=== PATIENT | female | born 1985 | race Caucasian/White ===

== ENCOUNTER 2024-08-01 10:56 | Emergency (ER) | payer SELFPAY ==
[2024-08-01 11:16] VITALS: BP 109/66; PULSE 72; RESP 18; TEMP 36.3; O2SAT 100
--- NOTE | 2024-08-01 11:22 | ED_ITS ---
HPI - Female Genitourinary General Chief complaint: Urogenital-Female Stated complaint: UTI symptoms Time Seen by Provider: 08/01/24 11:22 Source: patient and RN notes reviewed Mode of arrival: ambulatory Limitations: no limitations History of Present Illness HPI Narrative: 38-year-old female presents [facility] complaining of urinary symptoms for 14 days. Patient says she was recently treated for UTI with cephalexin and says she finished treatment her symptoms returned. 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 Patient reports having dysuria, increased frequency, low back pain, nausea, suprapubic pain, no increased hesitancy. Patient denies any fevers, body aches, chills, vomiting, diarrhea. Patient does report having vaginal discharge, she reports that is thin, white, without an odor. Patient denies any concerns for STIs over it given her persistent symptoms she did get tested for multiple STIs today and is awaiting results. Patient denies any pelvic pain, pain with intercourse, vaginal bleeding, or any other concerns. Patient has not taken anything [id number] for symptoms. Patient denies any significant past medical history. Related Data Allergies Allergy/AdvReac Type Severity Reaction Status Date / Time nitrofurantoin (From Allergy Mild Hives Verified 08/01/24 11:25 Macrobid) Penicillins Allergy Mild Anaphylaxis Verified 08/01/24 11:25 Review of Systems Review of Systems: CONSTITUTIONAL: Denies fever, chills, body aches, or sweats. EYES: Denies visual changes, redness, or discharge. ENT: Denies rhinorrhea, congestion, sore throat, or otalgia. CARDIOVASCULAR: Denies chest pain, palpitations, or edema. RESPIRATORY: Denies cough or dyspnea. GASTROINTESTINAL: Denies abdominal pain, vomiting, or diarrhea. Positive for nausea. GENITOURINARY: Positive for dysuria, vaginal discharge, increase hesitancy, suprapubic pain increased frequency. Negative for hematuria, vaginal bleeding, pelvic pain, painful intercourse SKIN: Denies rash or itching. MUSCULOSKELETAL: Positive for back pain. Negative for joint pain, or myalgia. NEUROLOGIC: Denies headache, numbness, or weakness. PSYCHIATRIC: Denies anxiety or depression. All other systems reviewed are negative, except as documented in HPI. PMFSH Comments At the time of my signature, I reviewed and agree with the nursing past medical, surgical, social, and family history. There is no relevant family history pertinent to the patient complaint. Exam Narrative: GENERAL: This is a well-nourished, well-developed adult, in no apparent distress. They are non ill-appearing, nontoxic appearing. HEAD: normocephalic, atraumatic. EYES: Sclera clear/white. Vision is grossly intact. Conjunctiva normal bilaterally. Extraocular movements intact. EARS: External ears normal,Hearing grossly intact. NOSE: External nose normal THROAT: Mucous membranes moist NECK: Normal range of motion CARDIOVASCULAR: Regular rate and rhythm. Normal S1-S2. No clicks, gallops, rubs, murmurs. RESPIRATORY: Respiratory rate normal, respiratory effort nonlabored, no respiratory distress. Lung sounds clear to auscultation throughout. Lung sounds equal bilaterally. No adventitious lung sounds. GASTROINTESTINAL: Abdomen soft, flat, mild suprapubic tenderness to palpation, nondistended. Bowel sounds are active. No hepato-splenomegaly, or palpable masses. No guarding or rigidity. No rebound tenderness. GENITOURINARY: Patient declined pelvic exam SKIN: warm, Dry, intact with no suspicious lesions or rash, good texture and turgor. NEURO: awake, alert, and oriented to person, place and time. There were no obvious focal neurologic abnormalities. EXTREMITIES: No joint tenderness, effusion, or edema noted. BACK: Nontender without deformity. No CVA tenderness. Course Course Emergency Course: Portions of this record may have been created with voice recognition software Level of Care: Express Care Visit Vital Signs Vital signs: Vital Signs Temperature 97.3 F L 08/01/24 11:16 Pulse Rate 72 08/01/24 11:16 Respiratory Rate 18 08/01/24 11:16 Blood Pressure 109/66 08/01/24 11:16 Pulse Oximetry 100 08/01/24 11:16 Oxygen Delivery Room Air 08/01/24 11:16 Temperature 97.3 F L 08/01/24 11:16 Pulse Rate 72 08/01/24 11:16 Respiratory Rate 18 08/01/24 11:16 Blood Pressure 109/66 08/01/24 11:16 Pulse Oximetry 100 08/01/24 11:16 Oxygen Delivery Room Air 08/01/24 11:16 MDM - Female Genitourinary MDM Narrative Medical decision making narrative: Urine dipstick showed evidence of urinary tract infection. Urine culture pending. Will treat with Bactrim. No peritoneal findings, no CVA tenderness. Patient requested fluconazole tablets because she states she frequently gets yeast infections with antibiotic use. Fluconazole is prescribed. Patient says she was tested for STIs today and would like to wait for results prior to any other treatment. Patient declined pelvic since she was tested today. Patient denies any concerns for STIs. Discussed physical exam findings. Advised supportive measures and signs/symptoms to go to the ER. Pt is appropriate for outpt treatment and f/u. Differential Diagnosis Differential diagnosis: Likely urinary tract infection, bacterial vaginosis, cystitis and other (Pyelonephritis, STI) Lab Data Attestation: I reviewed the patient's lab results. Labs: Lab Results 08/01/24 Range/Units 11:27 POC Urine Color Yellow POC Urine Clarity Cloudy POC Urine pH 6.0 POC Ur Specif [place] 1.025 POC Urine Protein Trace (Negative) POC Ur Glucose (UA) Negative (Negative) POC Urine Ketones Negative (Negative) POC Urine Blood 2+ (Negative) POC Urine Nitrite Positive (Negative) POC Urine Bilirubin Negative (Negative) POC Urine Urobilinogen 0.2 POC U Leukocyte Esteras 1+ (Negative) Discharge Plan Discharge Clinical Impression: Urinary tract infection Qualifiers: Urinary tract infection type: site unspecified Hematuria presence: with hematuria Qualified Code(s): N39.0 - Urinary tract infection, site not specified Patient Disposition: Home Condition: Stable Instructions: Antibiotic Form, Urinary Tract Infection in Women (ED) Additional Instructions: Take the antibiotic as prescribed The urine will be sent of for a culture to identify what type of bacteria is causing your infection. If the culture shows that the antibiotic will not get rid of your infection, you will be notified and a new antibiotic will be called in for you. Increase water intake Take fluconazole if you start to develop signs of a vaginal yeast infection. You may take 1 dose when symptoms started an additional dose and 72 hours if symptoms persist. you will need to follow up with your PCP 3-5 days. Go to the ER for any worsening symptoms, abdominal pain, fevers, nausea, vomiting, or any other concerns Patient Language: Estonian Prescriptions: New fluconazole 150 mg tablet 150 mg PO Q72H 3 Days Qty: 2 0RF sulfamethoxazole-trimethoprim [Bactrim DS] 800-160 mg tablet 1 tablet PO Q12H 7 Days Qty: 14 0RF Follow-up/Referrals: PHYSICIAN,AUTOMATION TESTER [Primary Care Provider] - Time of Disposition: 11:39
[2024-08-01 11:33] LABS: EDUAAPPEAR Cloudy; EDUABILI Negative (Negative); EDUABLOOD 2+ (Negative); EDUACOLOR1 Yellow; EDUAGLUCOSE Negative (Negative); EDUAKETONE Negative (Negative); EDUALEUKO 1+ (Negative); EDUANITRATE Positive (Negative); EDUAPROTEIN Trace (Negative); EDUASPGRAVITY 1.025; EDUAUROBILI 0.2
--- OUTSIDE RECORDS SUMMARY | 2024-08-01 12:10 | XMS_ITS | Clinical Summary ---
Author Organization [facility] [place] [id number] Care Team Providers Care Primary Care Sales Representative Name Role Phone Unavailable Primary Care Provider Unavailabl e Social History Tobacco Use Types Packs/Day Years Used Date Smoking Tobacco: Never Assessed Comments Unknown Sex and Gender Information Value Date Recorded Sex Assigned at Female 04/27/2023 4:48 PM EDT Legal Sex Female 4:46 PM EDT Gender Identity Not on file Sexual Orientation Not on file Plan of Treatment Health Maintenance Due Date Last Done Comments Hepatitis C Screening 2004 DTaP/Tdap/Td Vaccines (1 - Tdap) 2005 Hepatitis B Vaccines (1 of 3 - 19+ 3-dose series) 2005 Pap Smear 11/27/2007 Cervical Cancer Screening 2016 HPV/Cotest 2016 Influenza Vaccine (Season Ended) 2024 Zoster Vaccines (1 of 2) 2036 HIB Vaccines Aged Out No longer eligi ble based on patient's age to complete this topic HPV Vaccines Aged Out No longer eligi ble based on patient's age to complete this topic Hepatitis A Vaccines Aged Out No long er eligible based on patient's age to complete this topic IPV Vaccines Aged Out No longer eligi ble based on patient's age to complete this topic Meningococcal B Vaccine Aged Out No l onger eligible based on patient's age to complete this topic Meningococcal Vaccine Aged Out No hannah my eligible based on patient's age to complete this topic Pneumococcal Vaccine: Pediat rics (0 to 5 Years) and At-Risk Patients (6 to 49 Years) Aged Out No longer eligible b ased on patient's age to complete this topic Rotavirus Vaccines Aged Out No longer eligible based on patient's age to complete this topic Insurance [employer]
--- OUTSIDE RECORDS SUMMARY | 2024-08-01 12:10 | XMS_ITS | Data Portability ---
Author Organization [facility] , [address] [place] [address] Care Team Providers Care Fishing Tool Operator Name Role Phone ALEXANDER ESCOBEDO Primary Care Provider Assessment Encounter Date Assessment Date Assessment LastModified by Organization Details LastModified Time 08/27/2022 08/27/2022 36 year old who presents to [facility]. No records to review. New concerns: 1) Abnormal pap in February per pt report. Records show 12/2020 NIL, HPV negative. 11/2021 NIL. 08/2020 NIL, HPV positive. 2) Patient wanting to conceive. 3) Dysuria x 3 days. 4) Vaginal discharge that is yellow/white. LMP: 08/12/22 Pap: 11/2021 BC: TTC STI Screening: consents Plan: 1) UA and urine to culture. 2) Leuk panel 3) Start vitamins. Reviewed OPK. 4) STI labs drawn today. 5) Reviewed ASCCP screening guidelines, will do pap in November per pt request. f/u in November for pap/HPV. Seen by KRISHNA Leroy Not available 08/28/2022 14:53:07 08/29/2022 08/29/2022 Telehealth visit was completed today using audio. Patient was consented and two patient identifiers used. Total time 5 minutes. Follow up. LABS: STI negative Urine: mixed vicky LMP: 08/12/22 Pap: 11/2021 BC: TTC STI Screening: trichomonas+ Plan: 1) Trichomonas reviewed and treatment sent. Partner should be treated. State paperwork completed. 2) Start vitamins. Reviewed OPK. 3) Reviewed ASCCP screening guidelines, will do pap in November per pt request. f/u in November for pap/HPV. Seen by KRISHNA Leroy Not available 08/29/2022 17:03:37 09/22/2022 09/22/2022 Follow up. Concerns of STI and urinary symptoms. Was treated for trichomonas 08/27/22. Partner was treated as well. No new partners. Vaginal discharge creamy white. Dysuria x 4 days. UPT: neg LMP: 09/11/22 Pap: 11/2021 BC: TTC STI Screening: consents Plan: 1) Start macrobid BID. Urine to culture. 2) Leuk panel. 3) Reviewed ASCCP screening guidelines, will do pap in November per pt request. f/u in November for pap/HPV. Seen by KRISHNA Leroy Not available 09/22/2022 15:00:57 09/25/2022 09/25/2022 Pt was just seen in office on 09/22 for UTI-like symptoms. Urine cx sent and was tx'd empirically w/ Macrobid. However, developed a severe allergic reaction within 30 minutes of taking first dose. Had full body hives so went to be seen at and ended up having syncopal episode in the lobby. After waiting over 2 hours decided to check herself out and wanted to see if she can be seen in the ER, but the wait was even longer so pt ended up going home. Pt had been taking Benadryl so symptoms were improving. Hives are now gone She c/o dysuria, bladder pain and a weak stream. UA: large leuks and large blood. Urine cx was sent on 09/22, results still pending. Sending Rx Bactrim. Pt also has allergy to PCN Pt admits to being tx'd for Trich about a month ago. Also reviewed leukorrhea cx results, which showed both candidal and gardnerella infections, Trich negative along with GC/CT. Notes having some liquid-like vaginal discharge and is starting to feel vaginal discomfort. Sending Rx fluconazole and Metro gel Seen by JON Peterson Not available 09/25/2022 17:23:21 10/13/2022 10/13/2022 Follow up. New concerns of recent urine culture with E. Coli. Had vaginal odor x 3 days then left tampon in for 15 hours on accident. LMP: 10/08/22 Pap: 2021 NIL STI Screening: consents Plan: 1) Urine to culture. 2) Leuk panel. Sample of Hylafem pH given. f/u for AWE Seen by KRISHNA Leroy Not available 10/13/2022 18:51:47 Plan of Treatment Reminders Order Date Submit Date Provider Last Modified By Organization Details Last Modified Time Details Appointments None recorded. Lab CT + NG + TV, DNA, urine/swab 2022 023 [facility] ([facility]), [address] , [place], [address], 3 10:30:45 culture, urine 2022 023 [facility], [facility], [address], [address], [place], [address], 3 18:00:03 urinalysis, dipstick 2022 023 [email or web address] In-Office Order, Internal Use Only DO Not Attach Compendium DO Not Attach Compendium, Do Not Delete/merge, [id number] 17:18:47 CT + NG + TV, DNA, urine/swab 2022 023 [facility] ([facility]), [address], [place], [address], 3 12:49:52 urinalysis, dipstick 2022 023 [facility] In-Office Order, Internal Use Only DO Not Attach Compendium DO Not Attach Compendium, Do Not Delete/merge, [id number] 3 14:24:29 test, urine 2022 023 [facility] In-Office Order, Internal Use Only DO Not Attach Compendium DO Not Attach Compendium, Do Not Delete/merge, [id number] 3 14:24:02 culture, urine 2022 023 [facility], [facility], [address], [address], [place], [address], 3 17:35:26 CT + NG + TV, DNA, urine/swab 2022 023 [facility] ([facility]), [address] [place] [address], [place], [address], 3 12:58:26 urinalysis, dipstick 2022 023 In-Office Order, Internal Use Only DO Not Attach Compendium DO Not Attach Compendium, Do Not Delete/merge, [id number] 3 15:49:38 culture, urine 2022 023 [facility], [address], [address], [place], [address], 3 16:07:59 unlisted lab - HBsAg,HCV,H IV,RPR 2022 023 [facility], [address], [address], [place], [address], 3 16:07:58 Referral None recorded. Procedures None recorded. Surgeries None recorded. Imaging None recorded. Medication Orders sulfamethox azole 800 mg-trimetho prim 160 mg tablet 2022 023 [id number], [address], [place], [id number], 3 16:55:08 fluconazole 150 mg tablet 2022 023 [facility] #12149, [address], [place], [id number], 3 16:58:25 metronidazo le 0.75 % (37.5 mg/5 gram) vaginal gel 2022 023 [facility] #[id number], [address], [place], [place], [id number], 3 16:58:26 Macrobid 100 mg capsule 2022 023 [facility] #41728, [address], [place], [place], [id number], 14:56:23 metronidazo le 500 mg tablet 2022 023 [facility] #61218, [address], [place], [place], [id number], 3 17:01:08 28 mg iron-800 mcg tablet 2022 023 [facility] #45443, [address], [place], [place], [id number], 15:38:56 Patient TargetsNo targets recorded. Patient Instructions Encounter Date Encounter Id Patient Instructions Last Modified By Organization Details Last Modified Time 08/27/2022 [id number] painful urinatio n (dysuria): care instructions Not available 08/27/2022 15:36:23 learning about future and diabetes Not available 08/27/2022 15:36:23 learning about future when you are overweight Not available 08/27/2022 15:36:23 learning about planning for future Not available 08/27/2022 15:36:23 Pt was given diagnosis of cervical dysplasia. She understands that this increases her risk of developing cervical cancer, vaginal/vulvar cancer, and anal cancer. She understands that we cannot predict the progression of disease or the severity of her disease in the future. We have emphasized the importance of follow-up in our office to increase the risk of detection and early treatment. All instructions were reviewed with the patient and all questions were answered. Not available 08/28/2022 14:53:16 08/29/2022 [id number] learning about future and diabetes Not available 08/29/2022 17:01:01 learning about future when you are overweight Not available 08/29/2022 17:01:01 learning about planning for future Not available 08/29/2022 17:01:01 09/22/2022 [id number] painful urinatio n (dysuria): care instructions Not available 09/22/2022 14:23:19 learning about future and diabetes Not available 09/22/2022 14:23:19 learning about future when you are overweight Not available 09/22/2022 14:23:19 learning about planning for future Not available 09/22/2022 14:23:19 Reason for Referral None Reported. Results Created Date Observation Date Name Description Value Unit Range Abnormal Flag Note LastModifiedBy Organization Detail LastModifiedTime 08/28/1908/28/2022 LEUKO RRHEA PANEL , SWAB eula - swab Normal normal ALYCE DA SPECI ES: Negat leanne This test detec ts the prese nce of Alyce da albic ans, Alyce da glabr zane, Alyce da tropi calis and Alyce da parap mya is. Metho d: Real- time PCR. This test was devel oped and its perfo rmanc e karlene cteri stics deter mined by Laura Wabeebwa. It has not been clear ed or appro anton by the U.S. Food and Drug Admin istra tion (FDA) . The labor atory is regul ated under CLIA as quali fied to perfo rm high- compl exity testi ng. This test is used for clini graham purpo ses. It shoul d not be regar ded as inves tigat ional or for resea rch. Not Available [facility] ([facility]) [address], [place], [address], 08/29/2022 12:58:26 08/28/1908/28/2022 LEUKO RRHEA PANEL , SWAB gardnerella Abnorm al abnormal GARDN ERELL A VAGIN PRINCESS: Posit leanne Metho d: Real- time PCR. This test was devel oped and its perfo rmanc e karlene cteri stics deter mined by Laura salas Wabeebwa. It has not been clear ed or appro anton by the U.S. Food and Drug Admin istra tion. The FDA has deter mined that such clear ance or appro stephen is not neces miranda. This test is used for clini graham purpo ses. It shoul d not be regar ded as inves tigat ional or for resea rch. Not Available [facility] ([facility]) [address], [place], [address], 08/29/2022 12:58:26 08/28/1908/28/2022 LEUKO RRHEA PANEL , SWAB CT/NG Normal normal CHLAM YDIA TRACH OMATI S: Negat leanne NEISS ERIA GONOR RHOEA E: Negat leanne Testi ng perfo rmed by the FDA-a pprov ed Holog ic APTIM A COMBO 2 Assay . The APTIM A COMBO 2 Assay is desig julio c to detec t the prese nce of Chlam ydia and Neiss eria in the follo wing speci mens colle cted in Aptim a trans port media or Prese rvCyt Solut ion: endoc ervic al and male ureth ral speci mens, clini goldie colle cted vagin al swab speci mens, Prese rvCyt Solut ion liqui d Pap speci mens, femal e and male urine speci mens, clini goldie- colle cted throa t and recta l sampl es. Perfo rmanc e with speci mens other than those liste d has not been evalu ated and resul ts must be inter prete d with cauti on and corre lated with clini graham findi ngs. Note: The perfo rmanc e of this assay has not been evalu ated in perso ns less than 14 years of age. Not Available [facility] ([facility]) [address], [place], [address], 08/29/2022 12:58:26 08/28/19 23 08/28/2022 LEUKO RRHEA PANEL , SWAB trichomonas vaginalis addon - swab Abnorm al abnormal TRICH OMONA S VAGIN PRINCESS: Posit leanne Testi ng perfo rmed by the FDA-a pprov ed Holog ic APTIM A Trich omona s vagin princess Assay . The APTIM A Trich omona s vagin princess Assay is desig julio c to detec t the prese nce of T. vagin princess in the follo wing speci mens colle cted in Aptim a trans port media or Prese rvCyt Solut ion: clini goldie- colle cted endoc ervic al and vagin al swab speci mens and Prese rvCyt liqui d Pap speci mens. Perfo rmanc e with speci mens other than those liste d has not been evalu ated and resul ts must be inter prete d with cauti on and corre lated with clini graham findi ngs. The sensi tivit y of this assay may be decre ased when perfo rmed using speci mens from oral or anal sourc es. For urine speci mens, the perfo rmanc e karlene cteri stics of this test were deter mined by Laura Xero, as requi red by CLIA '88 regul ation s. It has not be clear ed or appro anton for speci fic uses by the US Food and Drug Admin istra tion (FDA) . The FDA has deter mined that such clear ance or appro stephen is not neces miranda. This test is used for clini graham diagn ostic purpo se. It shoul d not be regar ded as inves tigat ional or for resea rch. Perfo rmanc e of this test with speci mens other than those liste d above has not been evalu ated and resul ts must be inter prete d with cauti on and corre lated with clini graham findi ngs. Note: The perfo rmanc e of this assay has not been evalu ated in perso ns less than 14 years of age. Not Available [facility] ([facility]) [address], [place], [address], 08/29/2022 12:58:26 08/28/19 23 08/29/2022 HBSAG ,HCV, HIV,R CA RPR screen Nonrea ctive nonrea ctive normal Not Available [facility] ([facility]) [address] [place] [address], [address], 08/29/2022 16:07:58 08/28/19 23 08/29/2022 HBSAG ,HCV, HIV,R CA hepatitis B surface Ag index <0.10 index <=0.99 normal Not Available [facility] ([facility]) [address] [place] [address], [place], [address], 08/29/2022 16:07:58 08/28/19 23 08/29/2022 HBSAG ,HCV, HIV,R CA hepatitis B surface antigen Nonrea ctive nonrea ctive normal The magni tude of the numer ical resul t of the HBsAg assay resul t does not corre late to the actua l quant itati ve amoun t of HBsAg prese nt in the sampl e. Not Available [facility] ([facility]) [address] [place] [address], [place], [address], 08/29/2022 16:07:58 08/28/19 23 08/29/2022 HBSAG ,HCV, HIV,R CA hepatitis C antibody screen result 0.04 index <=0.79 normal Not Available [facility] ([facility]) [address] [place] [address], [address], 08/29/2022 16:07:58 08/28/19 23 08/29/2022 HBSAG ,HCV, HIV,R CA hepatitis C antibody scrn interpretati on Nonrea ctive nonrea ctive normal Perfo rmanc e karlene cteri stics of this assay have not been estab lishe d for child anu under 18 month s of age. In cases where HCV is highl y suspe cted and serol ogies are negat leanne, Hepat itis C PCR may be usefu l to ascer tain statu s. Hepat itis C Antib jose j Refer ence Range : <=0.7 9 Nonre activ e 0.80- 0.99 Equiv ocal >=1.0 0 React leanne The magni tude of the numer ical resul t of the HCV assay resul t does not corre late to the actua l quant itati ve amoun t of HCV antib jose j prese nt in the sampl e. Not Available [facility] ([facility]) [address] [place] [address], [place], [address], 08/29/2022 16:07:58 08/28/19 23 08/29/2022 HBSAG ,HCV, HIV,R CA HIV 1/2 screen (chiv) Nonrea ctive nonrea ctive normal Negat leanne for HIV-1 antig en and HIV-1 /HIV- 2 antib odies . No labor atory evide nce of HIV infec tion. Not Available [facility] ([facility]) [address] [place] [address], [place], [address], 08/29/2022 16:07:58 08/28/19 23 08/29/2022 CULTU RE, URINE culture, urine See Commen t Cultu re, Urine Statu s: Final Sourc e: Urine -void ed Cultu re: Mixed Gram posit leanne vicky 10,00 0 - 50,00 0 CFU/m L Comme nt(s) : Mixed vicky ; Multi ple micro organ isms prese nt resem jarrell uroge nital vicky . No furth er brandt p indic ated. Urine is set up at a 1:100 0 dilut ion. Not Available [facility] ([facility]) [address] [place] [address], [place], [address], 08/29/2022 16:07:59 08/28/19 23 08/27/2022 urina lysis , dipst ick Leukocytes Negati ve Not Available In-Office Order Internal Use Only DO Not Attach Compendium DO Not Attach Compendium, Do Not Delete/merge, [id number] 08/27/2022 15:38:20 08/28/19 23 08/27/2022 urina lysis , dipst ick Nitrite negati ve Not Available In-Office Order Internal Use Only DO Not Attach Compendium DO Not Attach Compendium, Do Not Delete/merge, [id number] 08/27/2022 15:38:20 08/28/19 23 08/27/2022 urina lysis , dipst ick Urobilinogen .2 Not Available In-Of fice Order Internal Use Only DO Not Attach Compendium DO Not Attach Compendium, Do Not Delete/merge, 08/27/2022 15:38:20 08/28/19 23 08/27/2022 urina lysis , dipst ick Protein Negati ve Not Available In-Office Order Internal Use Only DO Not Attach Compendium DO Not Attach Compendium, Do Not Delete/merge, 08/27/2022 15:38:20 08/28/19 23 08/27/2022 urina lysis , dipst ick pH 5.0 Not Available In-Office Order Internal Use Only DO Not Attach Compendium DO Not Attach Compendium, Do Not Delete/merge, 08/27/2022 15:38:20 08/28/19 23 08/27/2022 urina lysis , dipst ick Blood Non-He molyze d: Trace Not Available In-Office Order Internal Use Only DO Not Attach Compendium DO Not Attach Compendium, Do Not Delete/merge, 08/27/2022 15:38:20 08/28/19 23 08/27/2022 urina lysis , dipst ick Specific [place] 1.030 Not Available In-Off ice Order Internal Use Only DO Not Attach Compendium DO Not Attach Compendium, Do Not Delete/merge, 08/27/2022 15:38:20 08/28/19 23 08/27/2022 urina lysis , dipst ick Ketone Negati ve Not Available In-Office Order Internal Use Only DO Not Attach Compendium DO Not Attach Compendium, Do Not Delete/merge, 08/27/2022 15:38:20 08/28/19 23 08/27/2022 urina lysis , dipst ick Bilirubin Negati ve Not Available In-Office Order Internal Use Only DO Not Attach Compendium DO Not Attach Compendium, Do Not Delete/merge, 08/27/2022 15:38:20 08/28/19 23 08/27/2022 urina lysis , dipst ick Glucose Negati ve Not Available In-Office Order Internal Use Only DO Not Attach Compendium DO Not Attach Compendium, Do Not Delete/merge, [id number] 08/27/2022 15:38:20 09/23/1909/24/2022 LEUKO RRHEA PANEL , SWAB eula - swab Abnorm al abnormal ALYCE DA SPECI ES: Posit leanne This test detec ts the prese nce of Alyce da albic ans, Alyce da glabr zane, Alyce da tropi calis and Alyce da parap mya is. Cross -reac tivit y has been obser anton with Alyce da [place]li [place] is. Metho d: Real- time PCR. This test was devel oped and its perfo rmanc e karlene cteri stics deter mined by [facility]. It has not been clear ed or appro anton by the U.S. Food and Drug Admin istra tion (FDA) . The labor atory is regul ated under CLIA as quali fied to perfo rm high- compl exity testi ng. This test is used for clini graham purpo ses. It shoul d not be regar ded as inves tigat ional or for resea rch. Not Available [facility] ([facility]) [address], [place], [address], 09/25/2022 12:49:52 09/23/19 23 09/24/2022 LEUKO RRHEA PANEL , SWAB gardnerella Abnorm al abnormal GARDN ERELL A VAGIN PRINCESS: Posit leanne Metho d: Real- time PCR. This test was devel oped and its perfo rmanc e karlene cteri stics deter mined by [facility]. It has not been clear ed or appro anton by the U.S. Food and Drug Admin istra tion. The FDA has deter mined that such clear ance or appro stephen is not neces miranda. This test is used for clini graham purpo ses. It shoul d not be regar ded as inves tigat ional or for resea rch. Not Available [facility] ([facility]) [address], [place], [address], 09/25/2022 12:49:52 09/23/1909/24/2022 LEUKO RRHEA PANEL , SWAB CT/NG Normal normal CHLAM YDIA TRACH OMATI S: Negat leanne NEISS ERIA GONOR RHOEA E: Negat leanne Testi ng perfo rmed by the FDA-a pprov ed Holog ic APTIM A COMBO 2 Assay . The APTIM A COMBO 2 Assay is desig julio c to detec t the prese nce of Chlam ydia and Neiss eria in the follo wing speci mens colle cted in Aptim a trans port media or Prese rvCyt Solut ion: endoc ervic al and male ureth ral speci mens, clini goldie colle cted vagin al swab speci mens, Prese rvCyt Solut ion liqui d Pap speci mens, femal e and male urine speci mens, clini goldie- colle cted throa t and recta l sampl es. Perfo rmanc e with speci mens other than those liste d has not been evalu ated and resul ts must be inter prete d with cauti on and corre lated with clini graham findi ngs. Note: The perfo rmanc e of this assay has not been evalu ated in perso ns less than 14 years of age. Not Available [facility] ([facility]) [address] , [place], [address], 09/25/2022 12:49:52 09/23/1909/24/2022 LEUKO RRHEA PANEL , SWAB trichomonas vaginalis addon - swab Normal normal Trich omona s vagin princess: Negat leanne Testi ng perfo rmed by the FDA-a pprov ed Holog ic APTIM A Trich omona s vagin princess Assay . The APTIM A Trich omona s vagin princess Assay is desig julio c to detec t the prese nce of T. vagin princess in the follo wing speci mens colle cted in Aptim a trans port media or Prese rvCyt Solut ion: clini goldie- colle cted endoc ervic al and vagin al swab speci mens and Prese rvCyt liqui d Pap speci mens. Perfo rmanc e with speci mens other than those liste d has not been evalu ated and resul ts must be inter prete d with cauti on and corre lated with clini graham findi ngs. The sensi tivit y of this assay may be decre ased when perfo rmed using speci mens from oral or anal sourc es. For urine speci mens, the perfo rmanc e karlene cteri stics of this test were deter mined by Laura salas Wabeebwa, as requi red by CLIA '88 regul ation s. It has not be clear ed or appro anton for speci fic uses by the US Food and Drug Admin istra tion (FDA) . The FDA has deter mined that such clear ance or appro stephen is not neces miranda. This test is used for clini graham diagn ostic purpo se. It shoul d not be regar ded as inves tigat ional or for resea rch. Perfo rmanc e of this test with speci mens other than those liste d above has not been evalu ated and resul ts must be inter prete d with cauti on and corre lated with clini graham findi ngs. Note: The perfo rmanc e of this assay has not been evalu ated in perso ns less than 14 years of age. Not Available [facility] ([facility]) [address] , [place], [address], 09/25/2022 12:49:52 09/24/19 23 09/25/2022 CULTU RE, URINE culture, urine See Commen t Cultu re, Urine Statu s: Final Sourc e: Urine -void ed Cultu re: Esche bryn a coli >100, 000 CFU/m L Comme nt(s) : E. coli; Cefaz dai MICs of <5 mcg/m L rodrigueo t diffe renti ate betwe en new natio nal (CLSI ) inter preta jackie l group s of Susce ptibl e (S = <3) and Inter media te (I = 4) and the inter preta tion is repor sage as * = S/I for Gram negat leanne rods (GNR) . Since cepha lospo rin urina ry bib ntrat ions are far great er than 4 mcg/m L, a GNR isola te with a cefaz dai repor t of <5 mcg/m may be treat ed for UTI with a cepha lospo rin. Cefaz dai MICs of >7 mcg/m L will still be repor sage as Katie robert (R). Susce ptibi lity: E. coli Ampic illin S <=2 Augme ntin S <=2 Cefaz dai * <=4 Tetra cycli ne S <=1 Genta micin S <=1 Tobra mycin S <=1 Cipro floxa sandro S <=0.2 5 Levof loxac in S <=0.1 2 Merop enem S <= 0.25 Nitro furan toin S <=16 Trime tho/S ulfa S <=20 Legen d: S=Jazmine cepti ble; I=Int ermed iate; R=Res istan t; *=NA/ See Comme nt Urine is set up at a 1:100 0 dilut ion. Not Available [facility] ([facility]) [address] [place] [address] [address], [place], [address], 09/25/2022 17:35:26 09/25/19 23 09/24/2022 pregn jh test, urine HCG negati ve Not Available In-Office Order Internal Use Only DO Not Attach Compendium DO Not Attach Compendium, Do Not Delete/merge, [id number] 09/22/2022 14:23:10 09/25/19 23 09/24/2022 urina lysis , dipst ick Leukocytes Trace Not Available In-Offi ce Order Internal Use Only DO Not Attach Compendium DO Not Attach Compendium, Do Not Delete/merge, [id number] 09/22/2022 14:23:08 09/25/19 23 09/24/2022 urina lysis , dipst ick Nitrite negati ve Not Available In-Office Order Internal Use Only DO Not Attach Compendium DO Not Attach Compendium, Do Not Delete/merge, [id number] 09/22/2022 14:23:08 09/25/19 23 09/24/2022 urina lysis , dipst ick Urobilinogen .2 Not Available In-Of fice Order Internal Use Only DO Not Attach Compendium DO Not Attach Compendium, Do Not Delete/merge, [id number] 09/22/2022 14:23:08 09/25/1909/24/2022 urina lysis , dipst ick Protein Trace Not Available In-Office Order Internal Use Only DO Not Attach Compendium DO Not Attach Compendium, Do Not Delete/merge, [id number] 09/22/2022 14:23:08 09/25/19 23 09/24/2022 urina lysis , dipst ick pH 6.0 Not Available In-Office Order Internal Use Only DO Not Attach Compendium DO Not Attach Compendium, Do Not Delete/merge, [id number] 09/22/2022 14:23:08 09/25/1909/24/2022 urina lysis , dipst ick Blood Non-He molyze d: Modera te Not Available In-Office Order Internal Use Only DO Not Attach Compendium DO Not Attach Compendium, Do Not Delete/merge, [id number] 09/22/2022 14:23:08 09/25/19 23 09/24/2022 urina lysis , dipst ick Specific [place] 1.020 Not Available In-Off ice Order Internal Use Only DO Not Attach Compendium DO Not Attach Compendium, Do Not Delete/merge, [id number] 09/22/2022 14:23:08 09/25/19 23 09/24/2022 urina lysis , dipst ick Ketone Negati ve Not Available In-Office Order Internal Use Only DO Not Attach Compendium DO Not Attach Compendium, Do Not Delete/merge, [id number] 09/22/2022 14:23:08 09/25/19 23 09/24/2022 urina lysis , dipst ick Bilirubin Negati ve Not Available In-Office Order Internal Use Only DO Not Attach Compendium DO Not Attach Compendium, Do Not Delete/merge, [id number] 09/22/2022 14:23:08 09/25/19 23 09/24/2022 urina lysis , dipst ick Glucose Negati ve Not Available In-Office Order Internal Use Only DO Not Attach Compendium DO Not Attach Compendium, Do Not Delete/merge, [id number] 09/22/2022 14:23:08 09/26/19 23 09/25/2022 urina lysis , dipst ick Leukocytes Large Not Available In-Offi ce Order Internal Use Only DO Not Attach Compendium DO Not Attach Compendium, Do Not Delete/merge, 09/25/2022 17:17:20 09/26/19 23 09/25/2022 urina lysis , dipst ick Nitrite negati ve Not Available In-Office Order Internal Use Only DO Not Attach Compendium DO Not Attach Compendium, Do Not Delete/merge, 09/25/2022 17:17:20 09/26/19 23 09/25/2022 urina lysis , dipst ick Urobilinogen 1 Not Available In-Of fice Order Internal Use Only DO Not Attach Compendium DO Not Attach Compendium, Do Not Delete/merge, 09/25/2022 17:17:20 09/26/19 23 09/25/2022 urina lysis , dipst ick Protein Trace Not Available In-Office Order Internal Use Only DO Not Attach Compendium DO Not Attach Compendium, Do Not Delete/merge, 09/25/2022 17:17:20 09/26/19 23 09/25/2022 urina lysis , dipst ick pH 5.0 Not Available In-Office Order Internal Use Only DO Not Attach Compendium DO Not Attach Compendium, Do Not Delete/merge, 09/25/2022 17:17:20 09/26/19 23 09/25/2022 urina lysis , dipst ick Blood Large Not Available In-Office Order Internal Use Only DO Not Attach Compendium DO Not Attach Compendium, Do Not Delete/merge, 09/25/2022 17:17:20 09/26/19 23 09/25/2022 urina lysis , dipst ick Specific [place] 1.010 Not Available In-Off ice Order Internal Use Only DO Not Attach Compendium DO Not Attach Compendium, Do Not Delete/merge, 09/25/2022 17:17:20 09/26/19 23 09/25/2022 urina lysis , dipst ick Ketone Negati ve Not Available In-Office Order Internal Use Only DO Not Attach Compendium DO Not Attach Compendium, Do Not Delete/merge, [id number] 09/25/2022 17:17:20 09/26/19 23 09/25/2022 urina lysis , dipst ick Bilirubin Negati ve Not Available In-Office Order Internal Use Only DO Not Attach Compendium DO Not Attach Compendium, Do Not Delete/merge, [id number] 09/25/2022 17:17:20 09/26/19 23 09/25/2022 urina lysis , dipst ick Glucose Negati ve Not Available In-Office Order Internal Use Only DO Not Attach Compendium DO Not Attach Compendium, Do Not Delete/merge, [id number] 09/25/2022 17:17:20 10/14/1910/15/2022 LEUKO RRHEA PANEL , SWAB eula - swab Normal normal ALYCE DA SPECI ES: Negat leanne This test detec ts the prese nce of Alyce da albic ans, Alyce da glabr zane, Alyce da tropi calis and Alyce da parap mya is. Metho d: Real- time PCR. This test was devel oped and its perfo rmanc e karlene cteri stics deter mined by [employer]. It has not been clear ed or appro anton by the U.S. Food and Drug Admin istra tion (FDA) . The labor atory is regul ated under CLIA as quali fied to perfo rm high- compl exity testi ng. This test is used for clini graham purpo ses. It shoul d not be regar ded as inves tigat ional or for resea [facility]. Not Available [facility] ([facility]) [address], [place], [address], 10/16/2022 10:30:44 10/14/1910/15/2022 LEUKO RRHEA PANEL , SWAB gardnerella Abnorm al abnormal GARDN ERELL A VAGIN PRINCESS: Posit leanne Metho d: Real- time PCR. This test was devel oped and its perfo rmanc e karlene cteri stics deter mined by [employer]. It has not been clear ed or appro anton by the U.S. Food and Drug Admin istra tion. The FDA has deter mined that such clear ance or appro stephen is not neces miranda. This test is used for clini graham purpo ses. It shoul d not be regar ded as inves tigat ional or for resea rch. Not Available [facility] ([facility]) [address] , [place], [address], 10/16/2022 10:30:44 10/14/19 23 10/15/2022 LEUKO RRHEA PANEL , SWAB CT/NG Normal normal CHLAM YDIA TRACH OMATI S: Negat leanne NEISS ERIA GONOR RHOEA E: Negat leanne Testi ng perfo rmed by the FDA-a pprov ed Holog ic APTIM A COMBO 2 Assay . The APTIM A COMBO 2 Assay is desig julio c to detec t the prese nce of Chlam ydia and Neiss eria in the follo wing speci mens colle cted in Aptim a trans port media or Prese rvCyt Solut ion: endoc ervic al and male ureth ral speci mens, clini goldie colle cted vagin al swab speci mens, Prese rvCyt Solut ion liqui d Pap speci mens, femal e and male urine speci mens, clini ogldie- colle cted throa t and recta l sampl es. Perfo rmanc e with speci mens other than those liste d has not been evalu ated and resul ts must be inter prete d with cauti on and corre lated with clini graham findi ngs. Note: The perfo rmanc e of this assay has not been evalu ated in perso ns less than 14 years of age. Not Available [facility] ([facility]) [address], [place], [address], 10/16/2022 10:30:44 10/14/19 23 10/15/2022 LEUKO RRHEA PANEL , SWAB trichomonas vaginalis addon - swab Normal normal Trich omona s vagin princess: Negat leanne Testi ng perfo rmed by the FDA-a pprov ed Holog ic APTIM A Trich omona s vagin princess Assay . The APTIM A Trich omona s vagin princess Assay is desig julio c to detec t the prese nce of T. goldenin princess in the follo wing speci mens colle cted in Aptim a trans port media or Prese rvCyt Solut ion: clini goldie- colle cted endoc ervic al and vagin al swab speci mens and Prese rvCyt liqui d Pap speci mens. Perfo rmanc e with speci mens other than those liste d has not been evalu ated and resul ts must be inter prete d with cauti on and corre lated with clini graham findi ngs. The sensi tivit y of this assay may be decre ased when perfo rmed using speci mens from oral or anal sourc es. For urine speci mens, the perfo rmanc e karlene cteri stics of this test were deter mined by [facility] [employer], as requi red by CLIA '88 regul ation s. It has not be clear ed or appro anton for speci fic uses by the US Food and Drug Admin istra tion (FDA) . The FDA has deter mined that such clear ance or appro stephen is not neces miranda. This test is used for clini graham diagn ostic purpo se. It shoul d not be regar ded as inves tigat ional or for resea rch. Perfo rmanc e of this test with speci mens other than those liste d above has not been evalu ated and resul ts must be inter prete d with cauti on and corre lated with clini graham findi ngs. Note: The perfo rmanc e of this assay has not been evalu ated in perso ns less than 14 years of age. Not Available [facility] ([facility]) [address], [place], [address], 10/16/2022 10:30:44 10/15/19 23 10/16/2022 CULTU RE, URINE culture, urine See Commen t Cultu re, Urine Statu s: Final Sourc e: Urine -void ed Cultu re: No growt h COMME NT: Urine is set up at a 1:100 0 dilut ion. Not Available [facility] ([facility]) [address] [place] [address] [address], [place], [address], 10/16/2022 18:00:03 Result Notes None recorded. Problems Name Problem SNOMED Code Status Onset Date Resolution Date Notes Provider Name and Address Organization Details Recorded Time History of human papilloma virus infection 70858906964926 2 Active 2022 Zoya Pettit, [facility]- [address], [place], [address], GENARO Adrian MD 15:38:58 Problem Notes None recorded. Procedures Surgical History Date Name Laterality Status Provider Name and Address Organization Details Recorded Time 11/19/19 22 completed Clare Adrian MD 09/25/2022 16:36:31 08/19/19 21 Removal of gallbladder completed Not Available Health Note 08/27/2022 15:04:44 08/19/19 19 Cholecystectomy completed Angelia Adrian MD 08/25/2022 12:02:24 01/08/20 12 Appendectomy completed Angelia Adrian MD PC 08/25/2022 12:01:56 01/08/20 12 Appendectomy completed Not Available Health Note 08/27/2022 15:04:44 procedure on upper arm completed Angelia Adrian MD PC 08/25/2022 12:02:13 Imaging Results None recorded. Procedure Notes None recorded. Medical Equipment None Reported. Allergies Allergen ID Allergen Name Allergen Category Reaction Reaction Severity Criticality Documentation Date Start Date Code Code System Note Provider Name and Address Organization Details Recorded Time 71032 Product containin g penicilli n (product) medicatio n itching rash Not available Not available Not available 08/27/2022 45533 8001 SNOMED can not breat he, sever e rash, whole body itche s Not Available Health Note 15:04:43 19241 Macrobid medicatio n other Not available unabletoasse ss 09/24/2022 47675 1 RxNorm hives , synco pe, diaph oresi s, troub le breat mayela, rash/ itchi ng CHETNA ASHLEY, [facility] [address],[address], [place], [address] [facility] GENARO Adrian MD PC 12:32:47 Medications Name Sig Start Date Stop Date Status Note LastModified by Organization Details LastModified Time doxycycline hyclate 100 mg capsule active Not Available Not Available N ot Available fluconazole 150 mg tablet TAKE 1 TABLET BY MOUTH EVERY 72 HOURS 10/13 completed Not Available Not Available Not Available metronidazo le 0.75 % (37.5 mg/5 gram) vaginal gel INSERT 1 APPLICATO RFUL VAGINALLY EVERY DAY AT BEDTIME FOR 5 DAYS 10/13 completed Not Available Not Available Not Available spironolact one 100 mg tablet 100mg 2/day active Not Available Not Available No t Available metronidazo le 500 mg tablet TAKE 1 TABLET BY MOUTH TWICE DAILY FOR 7 DAYS active Not Available Not Available No t Available sulfamethox azole 800 mg-trimetho prim 160 mg tablet TAKE 1 TABLET BY MOUTH EVERY 12 HOURS FOR 5 DAYS 10/13 completed Not Available Not Available Not Available diclofenac sodium 75 mg tablet,dorita yed release TAKE 1 TABLET BY MOUTH TWICE DAILY FOR 7 DAYS active Not Available Not Available No t Available nitrofurant oin monohydrate /macrocryst als 100 mg capsule TAKE 1 CAPSULE BY MOUTH EVERY 12 HOURS FOR 5 DAYS 09/25 completed Not Available Not Available Not Available 28 mg iron-800 mcg tablet TAKE 1 TABLET BY MOUTH EVERY DAY active Not Available Not Available No t Available Vitals Date Recorded Body weight Body mass index (BMI) Systolic blood pressure Diastolic blood pressure Provider Name and Address Organization Details Last Updated DateTime 08/27/2022 20627.08 g 22.4 kg/m2 122 mm[Hg] 80 mm[Hg] Jessy Adrian MD 08/27/2022 15:20:57 Date Recorded Body height Provider Name an d Address Organization Details Last Updated DateTime 08/27/2022 172.72 cm Not Available Health Note 08/27/2022 15:05:21 Date Recorded Body height Body mass index (BMI) Body weight Provider Name and Address Organization Details Last Updated DateTime 08/29/2022 172.72 cm 22 kg/m2 32055.89 g Margret Adrian MD 08/29/2022 16:47:56 Date Recorded Body height Body mass index (BMI) Body weight Systolic blood pressure Diastolic blood pressure Provider Name and Address Organization Details Last Updated DateTime 09/22/2022 172.72 cm 21.9 kg/m2 74048.02 g 104 mm[Hg] 66 mm[Hg] Shana Zoë Adrian MD 14:05:51 Date Recorded Body height Body mass index (BMI) Body weight Systolic blood pressure Diastolic blood pressure Provider Name and Address Organization Details Last Updated DateTime 09/25/2022 172.72 cm 21.9 kg/m2 85825.02 g 100 mm[Hg] 72 mm[Hg] Clare Adrian MD 16:40:04 Date Recorded Body height Body mass index (BMI) Body weight Systolic blood pressure Diastolic blood pressure Provider Name and Address Organization Details Last Updated DateTime 10/13/2022 172.72 cm 21.9 kg/m2 88818.3 g 110 mm[Hg] 70 mm[Hg] Holly Adrian MD 18:38:21 Social History Question Answer Notes LastModified by Organizat ion Details LastModified Time Tobacco Smoking Status Former Smoker Not Available Health Note 08/27/2022 15:04:45 If You Are , What Was Your Level Of Alcohol Consumption Prior To ? None [email or web address] Information not available 09/25/2022 How Many Years Have You Consumed Alcohol? 12 [email or web address] Information not available 09/25/2022 Is Blood Transfusion Acceptable In An Emergency? Yes [email or web address] Information not available 08/27/2022 What Is Your Level Of Caffeine Consumption? Moderate [email or web address] Information not available 09/25/2022 How Much Tobacco Do You Chew? None Information not available 09/25/2022 Which Illicit Or Recreational Drugs Have You Used? Amphetamines, Marijuana [email or web address] Information not available 08/27/2022 Live Alone Or With Others? With Others Information not available 10/13/2022 Have You Had Contact With Anyone Who Has Had A Cough, Fever Or New Difficulty Breathing In The Past 14 Days? No [email or web address] Information not available 08/27/2022 Have You Had Any Contact With A Person Who Was Diagnosed With Coronavirus (COVID-19) In The Last 14 Days? No [email or web address] Information not available 08/27/2022 Do You Have Or Have You Had Any Of The Following In The Past 14 Days: NONE OF THE ABOVE [email or web address] Information not available 08/27/2022 What Was The Date Of Your Most Recent Tobacco Screening? 08/27/2022 [email or web address] Information not available 08/27/2022 What Is Your Relationship Status? Single Information not available 10/13/2022 Are You Sexually Active? Yes Information not available 10/13/2022 At What Age Did You Start Smoking Tobacco? 15 Information not available 09/25/2022 How Much Tobacco Do You Smoke? No [email or web address] Information not available 09/25/2022 How Many Years Have You Smoked Tobacco? 18 [email or web address] Information not available 08/27/2022 Sex: Unknown Functional Status Question Answer Note LastModified by Organizat ion Details LastModified Time What is your level of alcohol consumption? Occasional [email or web address] Information not available 08/27/2022 Do you or have you ever used smokeless tobacco? Never used smokeless tobacco [email or web address] Information not available 08/27/2022 Are you currently employed? Yes Information not available 10/13/2022 What is your occupation? [employer] Information not available 10/13/2022 Do you or have you ever used e-cigarettes or vape? Current user of electronic cigarettes [email or web address] Information not available 08/27/2022 What is your exercise level? Occasional [email or web address] Information not available 08/27/2022 Mental Status Question Answer Note LastModified by Organization D etails LastModified Time Do you have difficulty concentrating, remembering or making decisions? No [email or web address] Information no t available 09/25/2022 Family History Relationship Description Onset Age of this Age Resolved Age Notes LastModified by Organization Details LastModified Time Father Diabetes mellitus [email or web address] Not available 08/25 12:03:59 Maternal Grandmother Malignant tumor of breast [email or web address] Not available 2022 15:04:43 Maternal Grandmother Malignant neoplasm of ovary [email or web address] Not available 2022 15:04:43 Paternal Grandfather Heart disease [email or web address] Not available 2022 15:04:43 Medical History Condition Response Anesthesia complications N High Blood Pressure N Heart Conditions N Breast Cancer N Kidney or Bladder Problems N Thyroid Problems N Lung Disease N Depression N GI Problems N Polycystic ovarian syndrome N Defects or Inherited Disease N Cervical cancer N Breast Problem N Anemia N Pelvic inflammatory disease N Psychiatric Illness N Anxiety Disorder N Diabetes N Ovarian Cancer N Pulmonary embolus N Arthritis N Headaches or Migraines N Infertility N Deep vein thrombosis N Cancer N Asthma N Endometriosis N Uterine fibroids N Uterine cancer N Clotting disorder N Hepatitis N Gynecological History Statement/Question Response Y Date of LMP 10/08/2022 How many pads or tampons on your heavies t days 5 HPV Vaccine N Duration of Flow (days) 5 Age at Menarche 13 Current Control Method Condoms Date of last Pap smear 02/16/2022 If yes, what Gonorrhea, tric History of sexually transmitted disease Y Have you ever had an abnormal Pap Y Treatment ? Frequency of Cycle (Q days) 28 11/18/2021 If yes, diagnosis HPV N Obstetrics History GPAL:G 2 P 0 0 2 0 Type Value Full Term 0 Spontaneous 2 Total 2 Past Encounters Encounter ID Performer Location Encounter Start Date Encounter Closed Date Diagnosis/Indication Diagnosis SNOMED-CT Code Diagnosis ICD10 Code Diagnosis Note [id number] EDUARDO Gonzales [address] [place] [address] 08/27/2022 14:42:13 08/27/2022 15:56:36 Herpes simplex type 1 infection 258528116 B00.9 Trying to conceive 17726 9001 Z31.9 Vaginal discharge 189662 006 N89.8 Dysuria 25111688 R30.0 History of human papilloma virus infection 4183854040 16644 Z86.19 Venereal d isease screening 637414364 Z11.3 [id number] EDUARDO Gonzales [address] [place] [address] 08/29/2022 16:47:05 08/29/2022 17:03:29 Trying to conceive 257762886 Z31.9 Herpes sim plex type 1 infection 038674851 B00.9 History of human papilloma virus infection 6118585258 79397 Z86.19 Trichomonal vaginitis 27 6673066 A59.00 [id number] NATALIE Gonzales [address] [facility] e [address] [place] [address] 09/22/2022 13:50:05 09/22/2022 14:26:48 Trying to conceive 635384818 Z31.9 Herpes sim plex type 1 infection 535515521 B00.9 History of human papilloma virus infection 9188674113 03515 Z86.19 Dysuria 75620315 R30.0 Vaginal discharge 012781 006 N89.8 [id number] Zoya Snowden PA-C [address] [address] 09/25/2022 16:33:34 09/25/2022 17:32:44 Acute urinary tract infection 332772029 N39.0 Acute vaginitis 16269730 N76.0 [id number] Mary Grimm [facility] [address] [place] [address] 10/13/2022 17:50:50 10/13/2022 18:51:57 History of recurrent urinary tract infection 411220214 Z87.440 Vaginal discharge 663775 006 N89.8 Health Concerns Section Related Observation LastModified by Organization Detai ls LastModified Time None Recorded Concern Status LastModified by Organization Details LastModified Time None Recorded Advance Directives Directive None Recorded Payers Insurance Date Sequence Insurance Name Policy Number Policy Smith Covered Member ID Smith Member ID Guarantor Name 08/22/2022 2 [employer]INATED BENEFIT PLANS - [employer] - LIMITED MEDICAL - MULTIPLAN (INDEMNITY) Zoya Corona [id number] Zoya Corona 12/10/2022 1 CO-ORDINATED BENEFIT PLANS - [employer]EC[employer] - LIMITED MEDICAL - MULTIPLAN (INDEMNITY) Zoya Corona [id number] Zoya Corona Notes Date Note Type Note Provider Name and Address Organization Details Recorded Time 3 text/html 36yo patient here for abnormal pap smear 02/2022 resulting in HPV.LMP: 08/12/22Last Pap: 02/2022 Zoya Smith a 36 year old Female who presents for care. Abnormal Pap Smear:Duration: endorses hx of abnormal pap smears for approximately8 year(s)Most recent pap smear results: HPV results: Date of most recent pap smear:03/02/2022-Prior procedures:Pt is not aware of undergoing prior procedures such as colposcopy, ablative procedures, or excisional biopsiesRisk factors:previous smoker, new sexual partnerAssociated sxs:vaginal discharge, vaginal pain not associated with sexual intercourseDenies:irregula r/heavy vaginal bleeding, dyspareunia, post-coital bleeding, vaginal growth/lesionHx of condyloma:noHPV vaccine:denies receiving HPV vaccine in the pastOther concerns: Would like to discuss options to freeze the HPV from spreading as there is not a cure but can be frozen according to my doctor Menstruation:continues to have menstrual cyclesLMP:08/12/2022Sexual ly active:Pt is currently sexually activeHx of STDs:yes, includinggonorrheaPap smear in past:yesAbnormal pap smear:yesDx after abnormal pap smear:HPVTx for abnormal pap smear:?Mammogram in past:no Past Obstetric Hx:Previous pregnancies:yes,1pregnanci es Full Term:0Pre Term:0Pregnancy Loss:yesAbortions: Induced:0, Spontaneous:1, Ectopics:0Multiple Births:noLiving Children:0 NATALIE Leroy [address] [place] [address],[address], [place], [address], GENARO Adrian MD 08/28/2022 14:53:30 3 text/html 36 yo patient via telehealth phone ready to discuss lab results. NATALIE LeroyBC [address] [place] [address],[address], [place], [address], GENARO Adrian MD 08/29/2022 17:04:16 3 text/html 36 y/o pt presenting for f/u STD check. Pt c/o dysuria, slow urination and vaginal discharge (creamy white). Pt requesting to recheck STD screening. EDUARDO Leroy [address] [place] [address],[address], [place], [address], GENARO Adrian MD 09/22/2022 15:01:38 3 text/html 36 y/o pt here today for UTI. Pt reports pain while urinating. Seen in office on 09/22 for this, but then had an allergic reaction to Macrobid so she couldn't complete course of antibiotics.LMP:08/12/2022 Zoya Snowden PA-C [address] [place] [address],[address], [place], [address], GENARO Adrian MD 09/25/2022 17:23:54 3 text/html 36 yo pt is here for abnormal discharge and odor. Pt was experiencing these symptoms after leaving her tampon in for ever 15 hours. LMP: 10/08/2022 EDUARDO Leroy [address],[address], [place], [address], GENARO Adrian MD 10/13/2022 18:52:01 OBGyn Episode No OBEpisode recorded.
--- OUTSIDE RECORDS SUMMARY | 2024-08-01 12:10 | XMS_ITS | Continuity of Care Document ---
Author Organization [facility] Address [address] [place] [address] Phone Care Team Providers Care Die Cutter Apprentice Name Role Phone Justino Matthews OD Unavailable Unavailable Allergies, Adverse Reactions, Alerts Substance Reaction Status Criticality PENICILLIN Active No Information Procedures Procedure Date New Patient E/M Moderate MDM Advance Directives Directive Yes / No Effective Date File Name No Information Encounters Encounter Description Practice Location Reason(s) For Visit Diagnoses Date Provider Providers Copied on Encounter New Patient E/M Moderate MDM [facility], [address] [place] [address], [id number] , [place] tel:[phone] [facility] Refractive N Wheeler FB sensation (chief complaint) Foreign body in cornea, left eye, initial encounterUnspeci fied peripheral retinal degeneration Cassie Badillo. [address] [place], [place], [id number], [place]. tel:[phone] Referring Provider: Justino Matthews, [address] [place], [address]. tel:[phone] Family History Family Member Type Diagnosis Age At Onset No Information Payers Payer name Insurance type Covered republican ID Kleber whaley(madelaine) Nieves [id number] Social History Type Description Quantity Date Captured Comments Alcohol Use Details Unknown Caffeine Use Details Unknown Tobacco Use Status No Information Smoking Status No Information Sex Female Chief Complaint And Reason For Visit From encounter dated '08/26/2021 10:45'. FB sensation (chief complaint) Reason For Referral Reason For Referral No Information History Of Present Illness Encounter Date Complaint History Of Prese nt Illness FB sensation PT was seen at [facility] for and was told per xray there is a remaining piece of metal OS from previous injury about 8 weeks ago. Denies pain or discomfort. NO changes to VA. PT needs this out in order to proceed with MRI. Functional Status Date Functional Assessmen t No Information Instructions Date Instruction Additional Infor shantel Impression/Plan - OU ,monitor, signs and symptoms of RD explained, RTC immediately Related to Unspecified peripheral retinal degeneration Impression/Plan - NO EVIDENCE FOUND upon inspection.recd seeing report and xray and seeing RETINA/ OCULOPLASTICS to see if it is a metallic FB and then pt can proceed with an MRI Related to Foreign body in cornea, left eye, initial encounter Assessments Type Assessment Date assessment Foreign body in cornea, left eye , initial encounter impression Foreign body in cornea, left eye , initial encounter: T15.02xA assessment Unspecified peripheral retinal d egeneration impression Unspecified peripheral retinal d egeneration: H35.40 Patient Care Teams Name Effective Dates (start - stop) Status Members No Information
--- OUTSIDE RECORDS SUMMARY | 2024-08-01 12:10 | XMS_ITS | Patient Health Record ---
Author Organization [facility] Address [address] [place] [address] Care Team Providers Care Marketing Systems Analyst Name Role Phone Daniel CÁRDENAS, Willy Primary Care Provider UnavailROSIE Marks Unavailable [phone] Friend, Family Unavailable Unavailable Allergies Allergen (clinical drug ingredient) Drug/Non Drug Allergy documented on EMR Reaction Allergy Type Onset Date Status Penicillin Unknown Drug Allergy Active Reason For Referral No Information Medications Medication SIG (Take, Route, Fr equency, Duration) Notes Start Date End Date Status Spironolactone Activ e ibuprofen Active Problems Problem Type SNOMED Code ICD Code Onset Dates Problem Status W/U Status Risk Notes Problem Atrophy of muscle of left thigh (disorder) (29796781368 9100) Muscle wasting and atrophy, not elsewhere classified, left thigh (M62.552) Active confirmed Problem Primary localize d osteoarthritis of left knee (M17.12) Active confirmed Plan Of Treatment No Information Insurance Providers Payer Name Payer Address Payer Phone Subscriber Number Group Number Insured Name Patient Relationship to Insured Coverage Start Date Coverage End Date [facility] [address] [place] [phone] [id number] Petty Zoya Self - patient is the insured 2 Medical (General) History Medical History History ICD Code Headaches Surgical History Surgery Date(Month/Year) Gall bladder, appendix, skin graph on right leg, facial reconstruction
--- OUTSIDE RECORDS SUMMARY | 2024-08-01 12:15 | XMS_ITS | Continuity of Care Document ---
Author Organization [facility] Address [address] [place] [phone] Phone Care Team Providers Care Tank Stave Assembler Name Role Phone Justino Matthews OD Unavailable Unavailable Allergies, Adverse Reactions, Alerts Substance Reaction Status Criticality PENICILLIN Active No Information Procedures Procedure Date New Patient E/M Moderate MDM Advance Directives Directive Yes / No Effective Date File Name No Information Encounters Encounter Description Practice Location Reason(s) For Visit Diagnoses Date Provider Providers Copied on Encounter New Patient E/M Moderate MDM [facility], [address] [place] [address], [id number] , [place] tel:[phone] [phone] [place] FB sensation (chief complaint) Foreign body in cornea, left eye, initial encounterUnspeci fied peripheral retinal degeneration Cassie Badillo. [address] [place], [place], [id number], [place]. tel:[phone] Referring Provider: Justino Matthews, [address] [place], [address]. tel:[phone] Family History Family Member Type Diagnosis Age At Onset No Information Payers Payer name Insurance type Covered democrat ID Kleber whaley(madelaine) Nieves [id number] Social History Type Description Quantity Date Captured [...] Illness FB sensation PT was seen at [facility] for and was told per xray there [...]
== END 2024-08-01 11:44 | disposition home or self-care (01) ==
DX: N39.0 Urinary tract infection, site not specified (principal)
CPT/HCPCS: 81003; 87086; 87186; 99203; G0463